=== PATIENT | male | born 1935 | race African-American/Black ===

== ENCOUNTER 2019-04-28 05:55 | Day surgery (SDC) | payer MEDICARE, OTHER ==
[~2019-04-28] VITALS: Ht 185.4 cm; Wt 84.5 kg
[~2019-04-28 05:55] MED LIST: CIPROFLOXACIN HCL 0.3% 2.5 ML OPHTHALMIC SOLUTION ONE; CYCLOPENTOLATE HCL 1% 2 ML OPHTHALMIC SOLUTION ONE; FLURBIPROFEN SODIUM 0.03% 2.5 ML OPHTHALMIC SOLUTION ONE; RINGERS SOLUTION,LACTATED 500 ML IV ONE; TETRACAINE HCL/PF 0.5% 4 ML OPHTHALMIC SOLUTION ONE; TROPICAMIDE 1% 2 ML OPHTHALMIC SOLUTION ONE
[2019-04-28] MEDS ORDERED: PrednisoLONE ACETATE 1% 5 ML OPHTHALMIC SUSPENSION OS ONE (05:56)
[2019-04-28] MEDS ORDERED: HYALURONATE SOD/CHONDROITIN SOD 0.5 ML VIAL IO ONE (05:56)
[2019-04-28] MEDS ORDERED: LIDOCAINE/PF 1% 2 ML VIAL IM ONE (05:56)
[2019-04-28] MEDS ORDERED: HYALURONATE SODIUM 12 MG/ML 0.8 ML SYRINGE IO ONE (05:56)
[2019-04-28] MEDS ORDERED: MIDAZOLAM HCL 2 MG/2 ML VIAL IVP ONE (05:56)
[2019-04-28] MEDS ORDERED: FentaNYL CITRATE-PF 100 MCG/2 ML VIAL IVP ONE (05:56)
[2019-04-28] MEDS ORDERED: EPINEPHrine 1:1,000 [1 MG/ML] AMP IM ONE (05:56)
[2019-04-28] MEDS ORDERED: BALANCED SALT 15 ML OPHTHALMIC IRRIG.SOLN OS ONE (05:56)
[2019-04-28] MEDS ORDERED: TETRACAINE HCL/PF 0.5% 4 ML OPHTHALMIC SOLUTION OS ONE (06:00)
[2019-04-28] MEDS ORDERED: RINGERS SOLUTION,LACTATED 500 ML IV ONE (06:00)
[2019-04-28] MEDS ORDERED: ALLO300 PO (06:34)
[2019-04-28] MEDS ORDERED: SIMV-261 PO (06:34)
[2019-04-28] MEDS ORDERED: METF-960 PO (06:34)
[2019-04-28] MEDS ORDERED: TERA1CAP7 PO (06:34)
[2019-04-28] MEDS ORDERED: LOSA25TA71 PO (06:34)
[2019-04-28] MEDS: FLURBIPROFEN SODIUM 0.03% 2.5 ML OPHTHALMIC SOLUTION OS SCH ×3 (06:58→07:09)
[2019-04-28] MEDS: TROPICAMIDE 1% 2 ML OPHTHALMIC SOLUTION OS SCH ×3 (06:58→07:09)
[2019-04-28] MEDS: CIPROFLOXACIN HCL 0.3% 2.5 ML OPHTHALMIC SOLUTION OS SCH ×3 (06:58→07:09)
[2019-04-28] MEDS: CYCLOPENTOLATE HCL 1% 2 ML OPHTHALMIC SOLUTION OS SCH ×3 (06:58→07:09)
[2019-04-28 07:07] LABS: GLUCOMETER DEV NAME(LOC) SDS.; GLUCOSE,POINT OF CARE 107 MG/DL (70-110)
== END 2019-04-28 10:05 | disposition home or self-care (01) ==
LOC: SURGERY 05:55
PROVIDERS: ATTEND Ophthalmology
DX: E11.36 Type 2 diabetes mellitus with diabetic cataract (principal); H25.13 Age-related nuclear cataract, bilateral; G89.29 Other chronic pain; M19.90 Unspecified osteoarthritis, unspecified site; E78.00 Pure hypercholesterolemia, unspecified; I10 Essential (primary) hypertension; Z79.82 Long term (current) use of aspirin; Z79.84 Long term (current) use of oral hypoglycemic drugs; Z79.899 Other long term (current) drug therapy; Z98.890 Other specified postprocedural states
CPT/HCPCS: 66984; 82962; 93005; J0171; J2250; J3010; J3490 ×2; J7120; V2632

== ENCOUNTER 2022-10-15 10:57 | Emergency (ER) | payer MEDICARE, OTHER ==
[~2022-10-15] VITALS: Ht 183.5 cm; Wt 84.1 kg
[~2022-10-15 10:57] MED LIST changes: +ALLO-45 PO; -CIPROFLOXACIN HCL 0.3% 2.5 ML OPHTHALMIC SOLUTION ONE; -CYCLOPENTOLATE HCL 1% 2 ML OPHTHALMIC SOLUTION ONE; -FLURBIPROFEN SODIUM 0.03% 2.5 ML OPHTHALMIC SOLUTION ONE; +LOSA-381 PO; +METF-1211 PO; -RINGERS SOLUTION,LACTATED 500 ML IV ONE; +SIMV-261 PO; +TERA1CAP53 PO; -TETRACAINE HCL/PF 0.5% 4 ML OPHTHALMIC SOLUTION ONE; -TROPICAMIDE 1% 2 ML OPHTHALMIC SOLUTION ONE
[2022-10-15] MEDS ORDERED: GABA-1181 PO (11:14)
[2022-10-15 11:18] VITALS: TEMP 96.9
[2022-10-15] MEDS ORDERED: LIDOCAINE 5% TRANSDERMAL PATCH TD ONE (12:00)
[2022-10-15] MEDS ORDERED: KETOROLAC TROMETHAMINE 30 MG/ML VIAL IM ONE (12:00)
[2022-10-15 14:00] VITALS: BP 135/95; PULSE 84; RESP 20
== END 2022-10-15 16:06 | disposition home or self-care (01) ==
LOC: EMS 10:59
DX: M54.31 Sciatica, right side (principal); E11.9 Type 2 diabetes mellitus without complications; E78.00 Pure hypercholesterolemia, unspecified; I11.9 Hypertensive heart disease without heart failure
CPT/HCPCS: 99283; 96372; J1885